=== PATIENT | female | born 1980 | race Caucasian/White ===

== ENCOUNTER 2022-03-03 05:38 | Outpatient (CLI) | payer BC ==
[~2022-03-03] VITALS: Ht 152.4 cm; Wt 82.3 kg
[~2022-03-03 05:38] MED LIST: CETI10TA17; FRS325T; PREN1TAB39
[2022-03-03] MEDS ORDERED: BCP (15:12)
[2022-03-03] MEDS ORDERED: LEVO13CA4 PO (15:12)
[2022-03-03] MEDS ORDERED: FLUT9.9S NS (15:12)
[2022-03-03] MEDS ORDERED: FEXO-14 PO (15:12)
[2022-03-03] MEDS ORDERED: BP PILL (15:12)
== END 2022-03-03 15:16 | disposition home or self-care (01) ==
LOC: PREOP 05:38
PROVIDERS: ATTEND Otolaryngology Otolaryngology/Facial Plastic Surgery
DX: Z01.818 Encounter for other preprocedural examination (principal)

== ENCOUNTER 2022-03-10 05:57 | Day surgery (SDC) | payer BC ==
[2022-03-10] VITALS (11 sets, daily range): BP systolic 124–142; BP diastolic 64–81
[~2022-03-10] VITALS: Ht 152.4 cm; Wt 82.3 kg
[~2022-03-10 05:57] MED LIST changes: +BCP; +BP PILL; +FEXO-14 PO; +FLUT9.9S NS; +LEVO13CA4 PO
[2022-03-10] MEDS ORDERED: LIDOCAINE/EPI 2% 1:200,00 (XYLOCAINE) 20 ML VIAL ONE (07:04)
[2022-03-10] MEDS ORDERED: MUPIROCIN 2% OINT 22 GM (BACTROBAN) TUBE ONE (07:04)
--- NOTE | 2022-03-10 07:08 | Progress Note-Pre Operative ---
Pre-Operative Progress Note Date of Available H&P: Mar 10, 2022 Date H&P Reviewed: Mar 10, 2022 Time H&P Reviewed: 06:30 History & Physical: H&P Reviewed, Patient Examed, No changes noted Changes from last HP none Pre-Operative Diagnosis: Left Parotid Mass FARIDA MARS MD Mar 10, 2022 07:08
--- NOTE | 2022-03-10 07:09 | Progress Note-Post Operative ---
Post-Operative Progess Note Surgeon (s)/General Practice (s) Surgeon FARIDA MARS MD General Practice n/a Pre-Operative Diagnosis Left Parotid Mass Post-Operative Diagnosis same Post-Op Procedure Note Date of Procedure: Mar 10, 2022 Name of Procedure Performed: Incisional Biopsy of Left Parotid Mass Description & Findings Description and Findings: n/a Anesthesia Type get Estimated Blood Loss minimal Packing none. Specimen(s) collected/removed biopsy left parotid mass sent to pathology fresh for frozen and flow cytometry FARIDA MARS MD Mar 10, 2022 07:09
[2022-03-10] MEDS ORDERED: HYDROcodone/APAP 5 MG/325 MG (LORTAB) TAB PO PRN (07:15)
[2022-03-10] MEDS ORDERED: ACETAMINOPHEN 325 MG TABLET PO PRN (07:15)
[2022-03-10] MEDS ORDERED: MTP100TCR PO (07:16)
[2022-03-10] MEDS: LACTATED RINGERS 1,000 ML IV PRN ×2 (07:28→09:17)
[2022-03-10 07:37] LABS: BASOPHILS # (AUTO) 0.1 10^3/uL (0.0-0.1); BASOPHILS % (AUTO) 1 % (0-10); EOSINOPHILS # (AUTO) 0.1 10^3/uL (0.0-0.3); EOSINOPHILS % (AUTO) 1 % (0-10); HEMATOCRIT 44 % (35-52); HEMOGLOBIN 14.7 g/dL (11.5-16.0); LYMPHOCYTES # (AUTO) 0.9 10^3/uL (1.0-4.0); LYMPHOCYTES % (AUTO) 10 % (12-44); MEAN CORPUSCULAR HEMOGLOBIN 27 pg (25-34); MEAN CORPUSCULAR HGB CONC 33 g/dL (32-36); MEAN CORPUSCULAR VOLUME 81 fL (80-99); MONOCYTES # (AUTO) 0.6 10^3/uL (0.0-1.0); MONOCYTES % (AUTO) 6 % (0-12); NEUTROPHILS # (AUTO) 8.2 10^3/uL (1.8-7.8); NEUTROPHILS % (AUTO) 83 % (42-75); PLATELET COUNT 276 10^3/uL (130-400); WHITE BLOOD COUNT 9.8 10^3/uL (4.3-11.0)
[2022-03-10] MEDS ORDERED: SEVOFLURANE (ULTANE) 15 ML INHAL SOLN ONE ×2 (07:38→09:03)
[2022-03-10] MEDS ORDERED: proPOfol 200 MG/20 ML (DIPRIVAN) VIAL IV ONE ×2 (07:38→08:00)
[2022-03-10] MEDS ORDERED: LIDOCAINE PF 2% 5 ML (XYLOCAINE) VIAL ONE (07:38)
[2022-03-10] MEDS ORDERED: MIDAZOLAM 2 MG/2 ML (VERSED) VIAL ONE (07:38)
[2022-03-10] MEDS ORDERED: fentaNYL INJ 100 MCG/2 ML AMP ONE (07:38)
[2022-03-10] MEDS ORDERED: ONDANSETRON 4 MG/2 ML (SDV) Z0FRAN ONE (07:38)
[2022-03-10 07:59] LABS: CALCIUM 9.3 MG/DL (8.5-10.1); CREATININE SERUM 0.8 MG/DL (0.60-1.30); POTASSIUM 4.1 MMOL/L (3.6-5.0)
[2022-03-10] MEDS ORDERED: PHENYLEPHRINE 100 MCG/ML 10 ML (ANESTHESIA) SYR ONE (08:10)
[2022-03-10] MEDS ORDERED: ONDANSETRON 4 MG/2 ML (SDV) Z0FRAN IVP PRN (09:30)
[2022-03-10] MEDS ORDERED: HYDROmorphone 2 MG/ML VIAL (DILAUDID) IV ONE (09:30)
[2022-03-10] MEDS ORDERED: ACHD5005 PO (10:15)
--- NOTE | 2022-03-10 12:56 | Anesthesia-General Post-Op ---
General Patient Condition Mental Status/LOC: Same as Preop Cardiovascular: Satisfactory Nausea/Vomiting: Absent Respiratory: Satisfactory Pain: Controlled Complications: Absent Post Op Complications Complications None Follow Up Care/Instructions Patient Instructions None needed. Anesthesia/Patient Condition Patient Condition Patient is doing well, no complaints, stable vital signs, no apparent adverse anesthesia problems. No complications reported per nursing. D/C home per [facility] [place] Criteria: Yes HUMBERTO DAVID CRNA Mar 10, 2022 12:56
== END 2022-03-10 11:10 ==
LOC: SDC 05:57
PROVIDERS: ATTEND Otolaryngology Otolaryngology/Facial Plastic Surgery
DX: R59.0 Localized enlarged lymph nodes (principal); K11.8 Other diseases of salivary glands
CPT/HCPCS: 36415; 80048; 84703; 85025; 87081

== ENCOUNTER 2022-04-07 05:33 | Outpatient (CLI) | payer BC ==
[~2022-04-07] VITALS: Ht 152.4 cm; Wt 81.8 kg
[~2022-04-07 05:33] MED LIST changes: +ACHD5005 PO; +MTP100TCR PO
== END 2022-04-07 17:01 | disposition home or self-care (01) ==
LOC: PREOP 05:33
PROVIDERS: ATTEND Otolaryngology Otolaryngology/Facial Plastic Surgery
DX: Z01.818 Encounter for other preprocedural examination (principal)

== ENCOUNTER 2022-04-14 06:23 | Day surgery (SDC) | payer BC ==
[2022-04-14] VITALS (13 sets, daily range): BP systolic 114–147; BP diastolic 67–100
[~2022-04-14] VITALS: Ht 152.4 cm; Wt 81.8 kg
[2022-04-14] MEDS: LACTATED RINGERS 1,000 ML IV PRN ×2 (07:04→09:55)
[2022-04-14] MEDS ORDERED: LIDOCAINE/EPI 2% 1:200,00 (XYLOCAINE) 20 ML VIAL ONE (07:54)
[2022-04-14] MEDS ORDERED: LIDOCAINE PF 2% 5 ML (XYLOCAINE) VIAL ONE (07:54)
[2022-04-14] MEDS ORDERED: ONDANSETRON 4 MG/2 ML (SDV) Z0FRAN ONE (07:54)
[2022-04-14] MEDS ORDERED: SUCCINYLCHOLINE INJ 100 MG/5 ML SYR/VIAL ONE (07:54)
[2022-04-14] MEDS ORDERED: fentaNYL INJ 100 MCG/2 ML AMP ONE (07:54)
[2022-04-14] MEDS ORDERED: MIDAZOLAM 2 MG/2 ML (VERSED) VIAL ONE (07:54)
[2022-04-14] MEDS ORDERED: MUPIROCIN 2% OINT 22 GM (BACTROBAN) TUBE ONE (07:54)
[2022-04-14] MEDS ORDERED: BSS 15 ML ONE (07:54)
[2022-04-14] MEDS ORDERED: proPOfol 200 MG/20 ML (DIPRIVAN) VIAL IV ONE (07:54)
[2022-04-14] MEDS ORDERED: ROCURONIUM 10 MG/ML 5 ML SYRINGE IV ONE (07:54)
[2022-04-14] MEDS ORDERED: LIDOCAINE/EPI 2% 1:100,00 (XYLOCAINE) 20 ML VIAL IJ ONE (08:22)
[2022-04-14] MEDS: BSS 15 ML IO ONE ×2 (08:24→10:02)
[2022-04-14] MEDS ORDERED: MUPIROCIN 2% OINT 22 GM (BACTROBAN) TUBE TOP ONE (08:25)
--- NOTE | 2022-04-14 10:11 | Progress Note-Pre Operative ---
Pre-Operative Progress Note Date of Available H&P: Apr 14, 2022 Date H&P Reviewed: Apr 14, 2022 Time H&P Reviewed: 08:00 History & Physical: H&P Reviewed, Patient Examed, No changes noted Changes from last HP none Pre-Operative Diagnosis: Left Partid masses-lymphadenopathy FARIDA MARS MD Apr 14, 2022 10:11
--- NOTE | 2022-04-14 10:12 | Progress Note-Post Operative ---
Post-Operative Progess Note Surgeon (s)/Senior Android Software Engineer (s) Surgeon FARIDA MARS MD Senior Android Software Engineer n/a Pre-Operative Diagnosis Left Partid masses-lymphadenopathy Post-Operative Diagnosis same Post-Op Procedure Note Date of Procedure: Apr 14, 2022 Name of Procedure Performed: Excisin of Left Parotid Masses with Preservatin of FAcial Nerve Description & Findings Description and Findings: n/a Anesthesia Type get Estimated Blood Loss minimal Packing none. Specimen(s) collected/removed left parotid masses separtely fresh to pathology FARIDA MARS MD Apr 14, 2022 10:12
[2022-04-14] MEDS ORDERED: ACETAMINOPHEN 325 MG TABLET PO PRN (10:15)
[2022-04-14] MEDS ORDERED: HYDROcodone/APAP 5 MG/325 MG (LORTAB) TAB PO PRN (10:15)
[2022-04-14] MEDS ORDERED: SEVOFLURANE (ULTANE) 15 ML INHAL SOLN ONE (11:14)
[2022-04-14] MEDS ORDERED: morphine INJ 10 MG/ML 1ML (SYR OR VIAL) IVP ONE (11:30)
[2022-04-14] MEDS ORDERED: HYDROmorphone 2 MG/ML VIAL (DILAUDID) IV ONE (11:30)
[2022-04-14] MEDS ORDERED: ONDANSETRON 4 MG/2 ML (SDV) Z0FRAN IVP PRN (11:30)
--- NOTE | 2022-04-14 13:03 | Anesthesia-General Post-Op ---
General Patient Condition Mental Status/LOC: Same as Preop Cardiovascular: Satisfactory Nausea/Vomiting: Absent Respiratory: Satisfactory Pain: Controlled Complications: Absent Post Op Complications Complications None Follow Up Care/Instructions Patient Instructions None needed. Anesthesia/Patient Condition Patient Condition Patient is doing well, no complaints, stable vital signs, no apparent adverse anesthesia problems. No complications reported per nursing. LUIS MEZA CRNA Apr 14, 2022 13:03
== END 2022-04-14 13:18 | disposition home or self-care (01) ==
LOC: SDC 06:23
PROVIDERS: ATTEND Otolaryngology Otolaryngology/Facial Plastic Surgery
DX: K11.8 Other diseases of salivary glands (principal); K21.9 Gastro-esophageal reflux disease without esophagitis; Z79.899 Other long term (current) drug therapy
CPT/HCPCS: 84703; 87081

== ENCOUNTER 2022-06-23 05:34 | Outpatient (CLI) | payer BC ==
[~2022-06-23] VITALS: Ht 152.4 cm; Wt 81.8 kg
== END 2022-06-23 12:17 | disposition home or self-care (01) ==
LOC: PREOP 05:34
PROVIDERS: ATTEND Obstetrics & Gynecology
DX: Z01.818 Encounter for other preprocedural examination (principal)

== ENCOUNTER 2022-06-29 11:02 | Day surgery (SDC) | payer BC ==
[2022-06-29] VITALS (11 sets, daily range): BP systolic 130–163; BP diastolic 72–86
[~2022-06-29] VITALS: Ht 152.4 cm; Wt 81.8 kg
--- NOTE | 2022-06-29 08:23 | Progress Note-Pre Operative ---
Pre-Operative Progress Note Date of Available H&P: Jun 29, 2022 Date H&P Reviewed: Jun 29, 2022 Time H&P Reviewed: 12:56 History & Physical: H&P Reviewed, No changes noted Pre-Operative Diagnosis: Menorrhagia/menometrorrhagia/chronic pelvic pain TRENTON WU MD Jun 29, 2022 08:23
--- NOTE | 2022-06-29 08:24 | Progress Note-Post Operative ---
Post-Operative Progess Note Surgeon (s)/Home Improvement Installer (s) Surgeon TRENTON WU MD Home Improvement Installer: Ly Pre-Operative Diagnosis Menorrhagia/menometrorrhagia/chronic pelvic pain Post-Operative Diagnosis Same with Pelvic adhesions pelvic endometriosis And with pathology Pending. Procedure & Operative Findings Date of Procedure 06/29/22 Procedure Performed/Findings Total laparoscopic hysterectomy with bilateral salpingectomies And left oophorectomy as well as adhesiolysis Anesthesia Type General Estimated Blood Loss Estimated blood loss (mL): Minimal Specimens/Packing Specimens Removed Uterus and both fallopian tubes And left ovary TRENTON WU MD Jun 29, 2022 08:24
--- NOTE | 2022-06-29 08:26 | Discharge Inst-Surgical ---
Discharge Inst-Surgical Depart Medication/Instructions New, Converted or Re-Newed RX: Transmitted to Pharmacy Consults/Follow Up Orders & Referrals Follow Up Appt: Return to clinic in 1 week for suture removal Call to make follow up appt. for patient in 4 weeks. Activity: Rest for 24 hours, than as tolerated. Wound Care: May remove Band-Aid tomorrow. Replace as desired. Keep incisions clean and dry. Wash daily with soap and water. Please call in RX to patient pharmacy. Diet: As tolerated shower or tub bathe as desired. No driving for 24 hours, no alcoholic beverages for 24 hours, and nothing per vagina (no tampons, douching, or intercourse) for 8 weeks. Patient to return to the clinic as soon as possible for: Temperature greater than 101F, Severe Pain, Foul discharge from incision or vagina, Excessive Bleeding (more than a period). Activity Activity as Tolerated: No Diet Discharge Diet: No Restrictions TRENTNO WU MD Jun 29, 2022 08:26
[~2022-06-29 11:02] MED LIST changes: +DOCU-143 PO; +IBUP-1780 PO; +OXYC-199 PO
[2022-06-29 11:44] LABS: BASOPHILS # (AUTO) 0.1 10^3/uL (0.0-0.1); BASOPHILS % (AUTO) 1 % (0-10); EOSINOPHILS # (AUTO) 0.1 10^3/uL (0.0-0.3); EOSINOPHILS % (AUTO) 1 % (0-10); HEMATOCRIT 46 % (35-52); HEMOGLOBIN 15.1 g/dL (11.5-16.0); LYMPHOCYTES # (AUTO) 1.5 10^3/uL (1.0-4.0); LYMPHOCYTES % (AUTO) 18 % (12-44); MEAN CORPUSCULAR HEMOGLOBIN 27 pg (25-34); MEAN CORPUSCULAR HGB CONC 33 g/dL (32-36); MEAN CORPUSCULAR VOLUME 80 fL (80-99); MEAN PLATELET VOLUME 10.5 fL (9.0-12.2); MONOCYTES # (AUTO) 0.5 10^3/uL (0.0-1.0); MONOCYTES % (AUTO) 7 % (0-12); NEUTROPHILS % (AUTO) 74 % (42-75); PLATELET COUNT 320 10^3/uL (130-400); WHITE BLOOD COUNT 8.2 10^3/uL (4.3-11.0)
[2022-06-29] MEDS: LACTATED RINGERS 1,000 ML IV PRN ×3 (12:00→17:33)
[2022-06-29] MEDS ORDERED: ceFAZolin INJECTION 1,000 MG in NS (IVPB) 50 ML IV ONE (12:15)
[2022-06-29] MEDS ORDERED: BUP/EPI 0.25% 1:200,000 (MARCAINE) 30 ML VIAL ONE (12:17)
[2022-06-29] MEDS ORDERED: ONDANSETRON 4 MG/2 ML (SDV) Z0FRAN ONE (12:26)
[2022-06-29] MEDS ORDERED: LIDOCAINE PF 2% 5 ML (XYLOCAINE) VIAL ONE (12:26)
[2022-06-29] MEDS ORDERED: GLYCOPYRROLATE 0.2 MG/ML (ROBINUL) 2 ML VIAL ONE (12:26)
[2022-06-29] MEDS ORDERED: ROCURONIUM 10 MG/ML 5 ML SYRINGE IV ONE (12:26)
[2022-06-29] MEDS ORDERED: fentaNYL INJ 100 MCG/2 ML AMP ONE (12:26)
[2022-06-29] MEDS ORDERED: proPOfol 200 MG/20 ML (DIPRIVAN) VIAL IV ONE (12:26)
[2022-06-29] MEDS ORDERED: MIDAZOLAM 2 MG/2 ML (VERSED) VIAL ONE (12:27)
[2022-06-29] MEDS ORDERED: NEOSTIGMINE (BLOXIVERZ ) 1 MG/1ML 10 ML VIAL ONE (12:27)
[2022-06-29] MEDS ORDERED: PHENYLEPHRINE 100 MCG/ML 10 ML (ANESTHESIA) SYR ONE (13:35)
[2022-06-29] MEDS ORDERED: BUP/EPI 0.25% 1:200,000 (MARCAINE) 30 ML VIAL INJ ONE (13:48)
[2022-06-29] MEDS ORDERED: MEPERIDINE (DEMEROL) INJ 100 MG/ML IM PRN (14:15)
[2022-06-29] MEDS ORDERED: oxyCODONE/APAP 5/325MG (PERCOCET 5) TABLET PO PRN (14:15)
[2022-06-29] MEDS ORDERED: PROMETHAZINE INJ 25 MG/ML (PHENERGAN) AMP IM PRN (14:15)
[2022-06-29] MEDS ORDERED: D5 LR IV SOLUTION 1,000 ML IV SCH (14:15)
[2022-06-29] MEDS ORDERED: ONDANSETRON 4 MG/2 ML (SDV) Z0FRAN IVP PRN ×2 (14:15→14:45)
[2022-06-29] MEDS ORDERED: HYDROmorphone 2 MG/ML VIAL (DILAUDID) IV ONE (14:45)
[2022-06-29] MEDS ORDERED: morphine INJ 10 MG/ML 1ML (SYR OR VIAL) IVP ONE (14:45)
[2022-06-29] MEDS ORDERED: SEVOFLURANE (ULTANE) 15 ML INHAL SOLN ONE (14:46)
[2022-06-29] MEDS ORDERED: KETOROLAC 30 MG/ML VIAL ONE (14:51)
[2022-06-29] MEDS ORDERED: morphine INJ 10 MG/ML 1ML (SYR OR VIAL) ONE (14:51)
[2022-06-29] MEDS: KETOROLAC 30 MG/ML VIAL IV SCH ×2 (14:55→20:24)
--- NOTE | 2022-06-29 14:55 | Anesthesia-General Post-Op ---
General Patient Condition Mental Status/LOC: Same as Preop Cardiovascular: Satisfactory Nausea/Vomiting: Absent Respiratory: Satisfactory Pain: Controlled Complications: Absent Post Op Complications Complications None Follow Up Care/Instructions Patient Instructions None needed. Anesthesia/Patient Condition Patient Condition Patient is doing well in PACU with no complaints, stable vital signs, no apparent adverse anesthesia problems. No complications reported per nursing. REGI MAYORGA DO Jun 29, 2022 14:55
[2022-06-29] MEDS ORDERED: SIMETHICONE 80 MG (MYLICON) CHEW PO PRN (20:30)
[2022-06-29] MEDS ORDERED: SIMETHICONE 80 MG (MYLICON) CHEW ONE (20:33)
[2022-06-29] MEDS ORDERED: DOCUSATE SODIUM 100 MG (COLACE) CAP PO SCH (21:00)
[2022-06-30] MEDS: KETOROLAC 30 MG/ML VIAL IV SCH (02:59)
[2022-06-30 03:00] VITALS: BP_SYST 161; BP_SYST 178; BP_DIAS 86; BP_DIAS 89
[2022-06-30 03:40] VITALS: BP 174/83
--- NOTE | 2022-06-30 04:58 | OPERATIVE REPORT ---
DATE OF SERVICE: 06/29/2022 PREOPERATIVE DIAGNOSES: Menometrorrhagia and chronic pelvic pain. POSTOPERATIVE DIAGNOSES: Menometrorrhagia and chronic pelvic pain with endometriosis and pelvic adhesions. PROCEDURE: Total laparoscopic hysterectomy with bilateral salpingectomies and left oophorectomy as well as adhesiolysis. DESCRIPTION OF PROCEDURE: With the patient in the supine position under satisfactory general anesthesia, she was repositioned in dorsal lithotomy position in the [facility] and prepped and draped in the usual fashion for abdominal and vaginal surgery using da Betsey assistance. Weighted speculum placed in the posterior portion of vagina, cervix exposed and grasped anteriorly with a single-tooth tenaculum. The uterus was sounded to 9.5 cm with uterine sound. The cervix was then serially dilated with Shaheen dilators to accommodate a ALISSON II manipulator, which was placed with 6 mm x 8 cm uterine probe and a 30-mm colpotomy ring. Sutures of 1 Vicryl were placed at 3 and 9 o'clock position of the cervix to affix the uterus to the manipulator. A Harvey catheter was placed in the urinary bladder. The tenaculum and speculum were removed. The patient was brought in low dorsal lithotomy position. A 12-mm incision was made 10 cm above the umbilicus. A Veress needle was placed through that incision into the abdominal cavity. Correct placement was confirmed with a water drop test. The abdomen was insufflated with 2.4 liters of carbon dioxide and the Veress needle was removed and a 12-mm Optiview laparoscopic port placed. The patient was placed in slight Trendelenburg and ports of 8 mm were placed 8 cm lateral to the umbilicus through the incision of those sizes. The patient was now placed in steep Trendelenburg and the da Betsey column advanced on the patient, docked and then the operative instruments were placed in the right and left lateral ports and I retired to the da Betsey console. At the console, using a monopolar shear on the right and a bipolar fenestrated grasper on the left, the pelvis was first examined. There were extensive adhesions of the cul-de-sac to the posterior uterine segment, which likely involved pulling the rectum up onto the lower uterine segment. This was involving an area of endometrioma and endometriomata and endometriosis. Careful and meticulous dissection was undertaken to free the cul-de-sac and the sigmoid and lower rectosigmoid from the adhesions. With that done and the integrity of the bowel confirmed with digital rectal exam, then dissection was continued. The left ovary was densely adherent to the posterior surface of the uterus. Decision was made to go ahead with left oophorectomy secondary to the extensive involvement of adhesions and the endometriosis that was obviously there. The right ovary was normal and freely mobile and it was left intentionally in situ. Laparoscope was rotated. The appendix was identified. It was a normal vermiform appendix and it was left in situ. Attention was turned back to the pelvis. The right fallopian tube was grasped and elevated. The mesosalpinx was clamped, cauterized, and divided with the vessel sealer and dissection was continued across the mesosalpinx to the utero-ovarian pedicle was clamped, cauterized, and divided with the same instrument. The round ligament was treated in the same manner as was as the broad ligament and dissection was carried down onto the cardinal ligament on the left side, dissection was taken across the IP ligament to access the mesovarium which was clamped, cauterized, and divided stepwise across to the round ligament, which was also divided. The broad ligament was divided and then dissection was carried down the side of the uterus to the cardinal ligament on the left. With that done, the vessel sealer had been used for all of that dissection. The vessel sealer was now replaced again with the monopolar shear, the anterior lower uterine segment of peritoneum was divided, allowing the bladder to be dissected carefully down off the lower uterine segment. There were some adhesions and some fibrotic tissue in this area secondary to the patient's C-sections, but the integrity of the bladder was fully maintained. With the bladder dissected free, the anterior lower uterine segment of peritoneum, free of the lower uterine segment, colpotomy incision was started at the 12 o'clock position on to the colpotomy ring. That incision was continued circumferentially until the entire colpotomy ring was exposed and then the uterus with the tubes and the left ovary still attached was extracted through the vagina and sent to pathology for permanent section. The vaginal cuff was closed with a single suture of V-Loc barbed suture starting first on the right angle and continued all the way across to the left angle and then the last couple of stitches were used to bring the bladder peritoneum back down onto the vaginal cuff. Care was taken to ensure inclusion of the uterine vessel pedicles bilaterally. Both ureters were seen to be peristalsing throughout the dissection and that was confirmed again now and they were both of normal caliber. With no bleeding and no remaining abnormal pathology, procedure was terminated. The operative instruments were removed as were the ports. The abdomen was evacuated of insufflating gas and then the skin incisions were closed with interrupted nylon sutures after closing the fascia at the supraumbilical incision with a [id number] suture of 2-0 Vicryl. Speculum was replaced in the vagina. The vaginal cuff was examined and was found completely hemostatic, including completely reapproximated. Harvey catheter was removed. The patient was uneventfully awakened from her general anesthesia and transferred to the recovery room in stable condition. Sponge and needle counts were correct. Blood loss was minimal. Job ID: [id number] DocumentID: [id number] Dictated Date: 06/29/2022 16:36:27 Sap Project Manager Date: 06/30/2022 02:42:00 Dictated By: TRENTON WU MD
--- NOTE | 2022-06-30 07:47 | Progress Note ---
Standard Progress Note Progress Notes/Assess & Plan Date Seen by a Provider: Jun 30, 2022 Time Seen by a Provider: 07:46 Progress/Assessment & Plan This patient is without complaint. She is ambulating, voiding, tolerating oral intake well and has good pain control. Patient denies chest pain, denies shortness of breath, denies nausea or vomiting, and denies headache. Vital Signs Date Time Temp Pulse Resp B/P (MAP) Pulse Ox O2 Delivery O2 Flow Rate FiO2 06/30/22 03:40 72 18 174/83 (113) Room Air 06/30/22 03:00 36.7 70 18 178/89 (118) 97 Room Air 06/29/22 23:50 36.8 82 18 161/86 (111) 97 Room Air 06/29/22 20:24 36.8 84 18 163/83 (109) 97 Room Air 06/29/22 18:40 94 Room Air 06/29/22 15:40 36.4 68 18 133/74 (93) 97 Room Air 06/29/22 15:30 37.3 20 131/75 (93) 97 Room Air 06/29/22 15:30 Room Air 06/29/22 15:20 20 131/75 (93) 96 Room Air 06/29/22 15:15 Room Air 06/29/22 15:10 20 130/72 (91) 98 OxyMask 2.00 06/29/22 15:00 OxyMask 2.00 06/29/22 15:00 20 131/77 (95) 100 OxyMask 2.00 06/29/22 14:50 20 132/77 (95) 100 OxyMask 3.00 06/29/22 14:45 OxyMask 3.00 06/29/22 14:40 20 139/81 (100) 100 OxyMask 4.00 06/29/22 14:34 OxyMask 4.00 06/29/22 14:34 37.3 20 140/82 (101) 100 OxyMask 4.00 06/29/22 11:30 36.7 90 18 142/85 (104) 99 Room Air I & O 06/30/22 07:00 Intake Total 3175 ml Output Total 1225 ml Balance 1950 ml Vital signs are stable. Blood pressures are somewhat labile. The abdomen is benign Extremities show no clubbing cyanosis. There is no Homans' sign. Pelvic exam is deferred Assessment and plan Patient reports having elevated blood pressures with pressures in these ranges at home. Her primary care doctor is no longer available. She is on metoprolol and we will arrange a cardiology consult for evaluation and management of her elevated blood pressure Patient is postoperative day #1 status post hysterectomy with bilateral salpingectomies and left oophorectomy. She is doing well and will be discharged home with follow-up in clinic Final Diagnosis Menorrhagia menometrorrhagia TRENTON WU MD Jun 30, 2022 07:47
[2022-06-30 07:58] VITALS: BP 180/87
[2022-06-30] MEDS ORDERED: DOCUSATE SODIUM 100 MG (COLACE) CAP PO SCH (09:00)
[2022-06-30] MEDS ORDERED: IBUPROFEN 800 MG (MOTRIN) TAB PO SCH (14:15)
== END 2022-06-30 08:50 | disposition home or self-care (01) ==
LOC: SDC 11:02 → WS 15:30 → SDC 06-30 08:50
PROVIDERS: ATTEND Obstetrics & Gynecology
DX: D25.1 Intramural leiomyoma of uterus (principal); N83.292 Other ovarian cyst, left side; N94.89 Other specified conditions associated with female genital organs and menstrual cycle; N80.03 Adenomyosis of the uterus; N80.00 Endometriosis of the uterus, unspecified; K66.0 Peritoneal adhesions (postprocedural) (postinfection)
CPT/HCPCS: 36415; 84703; 85025; 87081; 94664